=== PATIENT | male | born 1950 | race Caucasian/White ===

== ENCOUNTER → 2018-01-01 | Day surgery (SDC) | payer MEDICARE ==
[2017-12-30 11:01] LABS: BASOPHILS # (AUTO) 0.1 (0.0-0.1); BASOPHILS % 0.9 % (0.0-1.0); EOSINOPHILS # (AUTO) 0.2 (0.0-0.4); EOSINOPHILS % 2.8 % (0.0-6.0); HEMOGLOBIN 15.8 g/dL (14.0-18.0); LYMPHOCYTES # (AUTO) 1.9 (1.0-3.2); LYMPHOCYTES % 24.9 % (18.0-39.1); MEAN CORPUSCULAR HEMOGLOBIN 29.7 pg (28-32); MEAN CORPUSCULAR HGB CONC 33.6 g/dL (31-35); MEAN CORPUSCULAR VOLUME 88.3 fL (81-99); MONOCYTES # (AUTO) 0.7 (0.2-0.8); NEUTROPHILS # (AUTO) 4.8 (2.1-6.9); NEUTROPHILS % 62.3 % (38.7-80.0); PLATELET COUNT 291 x10e3/uL (140-360); RED BLOOD COUNT 5.32 x10e6/uL (4.3-5.7); RED CELL DISTRIBUTION WIDTH 12.6 % (11.7-14.4)
--- NOTE | 2017-12-30 11:01 | Diagnostic Imaging Report ---
PROCEDURE: X-RAY CHEST, TWO VIEWS COMPARISON: None. INDICATIONS: PRE OPERATIVE CHEST X-RAY FOR HERNIA FINDINGS: LUNGS: No consolidations or edema. Questionable right apical nodular opacity superimposed over the anterior first rib. PLEURA: No effusions or pneumothorax. HEART \T\ MEDIASTINUM: The heart is within normal size-limits. BONES \T\ SOFT TISSUES: No acute findings. CONCLUSION: Questionable right apical nodular opacity projecting over the first rib may reflect summation of osseous and vascular structures. In the absence of prior chest radiographs for comparison, a short term followup chest radiograph (3 months) is suggested to assess for stability. Dictated by: Gerson Goldman M.D. on 12/30/2017 at 11:02 Electronically approved by: Gerson Goldman M.D. on 12/30/2017 at 11:02
[2017-12-30 11:20] LABS: ANION GAP 17.3 mmol/L (8-16); BLOOD UREA NITROGEN 14 mg/dL (7-26); BUN/CREATININE RATIO 14 (6-25); CALCIUM 9.8 mg/dL (8.4-10.2); CARBON DIOXIDE 29 mmol/L (22-29); CHLORIDE 99 mmol/L (98-107); CREATININE, SERUM 0.98 mg/dL (0.72-1.25); EST GLOMERULAR FILTRATION RATE > 60 ML/MIN (60-); GLUCOSE 92 mg/dL (74-118); POTASSIUM 4.3 mmol/L (3.5-5.1); SODIUM 141 mmol/L (136-145)
[~2018-01-01] MED LIST: ACETAMINOPHEN 1000 MG/100 ML IV ONE; ATENOLOL50 MG PO; BENICAR20 MG PO; BUPIVACAINE 0.25%/EPI 30ML SDV INJ ONE; CEFAZOLIN SOD 1 GM VIAL ONE; DEXAMETHASONE SOD PHOS INJ 4 MG/ML VIAL ONE; FENTANYL CITRATE/PF 100MCG/2 ML INJ ONE; GLYCOPYRROLATE INJ 1MG/ 5 ML SYR ONE; KETOROLAC TROMETHAMINE 30 MG/ML VIAL ONE; LIDOCAINE HCL 2% LOCAL INJ 5 ML SDV VIAL INJ ONE; MIDAZOLAM HCL 2 MG/2 ML VIAL ONE; NEOSTIGMINE 5 MG/5ML SYR ONE; ONDANSETRON HCL INJ 2 MG/ML VIAL ONE; PROPOFOL IV EMULSION 10 MG/ML 20 ML VIAL ONE; ROCURONIUM BROMIDE 10 MG/ML 5ML VIAL ONE; SEVOFLURANE INHAL SOLN 250 ML PEN BTL ONE
--- OUTSIDE RECORDS SUMMARY | 2018-01-01 06:22 | XMS REPORT ---
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 Allergies, Adverse Reactions, Alerts This patient has no known allergies or adverse reactions. Medications This patient has no known medications. Results Test Description Test Time Test Comments Text Results Atomic Results Result Comments CHEST 2 VIEWS [place] [id number] Patient Name: LILY MOTA MR #: [id number] : 1950 Age/Sex: 67/M Req # : [id number] Adm Physician: Ordered by: AUGUSTO BEAN MD Report #: [id number] Location: OR Room/Bed: Procedure: [id number] DX/CHEST 2 VIEWS Exam Date: Exam Time: REPORT STATUS: Signed PROCEDURE: X-RAY CHEST, TWO VIEWS COMPARISON: None. INDICATIONS: PRE OPERATIVE CHEST X-RAY FOR HERNIA FINDINGS: LUNGS: No consolidations or edema. Questionable right apical nodular opacity superimposed over the anterior first rib. PLEURA: No effusions or pneumothorax. HEART T MEDIASTINUM: The heart is within normal size- limits. BONES T SOFT TISSUES: No acute findings. CONCLUSION : Questionable right apical nodular opacity projecting over the first rib may reflect summation of osseous and vascular structures. In the absence of prior chest radiographs for comparison, a short term followup chest radiograph (3 months) is suggested to assess for stability. Dictated by: Ira Rogers M.D. on 12/30/2017 at 11:02 Electronically approved by: Ira Rogers M.D. on 12/30/2017 at 11:02 Dictated By: IRA ROGERS MD [id number] Transcribed By: GAVIOTA on 12/30/17 110 COPY TO: AUGUSTO BEAN MD
--- NOTE | 2018-01-01 11:30 | Operative Report ---
DATE OF PROCEDURE: January 01, 2018 PREOPERATIVE DIAGNOSIS: Incarcerated umbilical hernia. POSTOPERATIVE DIAGNOSIS: Incarcerated umbilical hernia. PROCEDURE PERFORMED: Repair of incarcerated umbilical hernia. ANESTHESIA: General endotracheal. ESTIMATED BLOOD LOSS: Minimal. DRAINS: None. COMPLICATIONS: None. INDICATIONS AND FINDINGS: This patient is a 67-year-old male who, during physical examination for work, was found to have an incarcerated umbilical hernia. He denied any pain. INTRAOPERATIVE FINDINGS: A less than 1.5-cm incarcerated umbilical herniation with herniation of properitoneal fat. Because of the small size of the repair, primary repair was performed. Incidental note is made of the fact that preoperatively, because he had been a smoker, chest x-ray done preoperatively as per hospital protocol and anesthesia protocol revealed a questionable density in the right upper lobe. He was advised in the holding area prior to surgery that he needs followup chest x-ray in 3 months to ascertain stability of the area in question. His was also informed postoperatively in the waiting room area of the operative results as well as the chest x-ray and the need for followup in 3 months. She was given a copy of his chest x-ray report. DESCRIPTION OF PROCEDURE: With the patient lying on the operative table in the supine position, after administration of general anesthesia, he was prepped and draped for repair of incarcerated umbilical hernia. An incision was made inferior to the umbilicus, and the dissection was carried down through skin and subcutaneous tissue down to the hernia, which consisted of properitoneal fat. The hernia was detached from the surrounding tissues. The excess fat was excised with electrocautery, achieving perfect hemostasis. Then the defect, which was about 1 cm or less, was then closed primarily with a series of interrupted #0 Ethibond suture. The repair was strong. There was no tension. The wound was irrigated and bleeding points cauterized. Sponge and instrument count was correct. The fascia was infiltrated with 0.25% Marcaine with epinephrine, and the wound was closed in layers using 2-0 and 3-0 Vicryl for the soft tissues, and the skin was closed using 3-0 silk. Sterile dressing was applied. The patient tolerated the procedure well and was taken to the recovery room in stable condition. Job#: [id number]
== END | disposition home or self-care (01) ==
LOC: OR 06:20
PROVIDERS: ATTEND Surgery
DX: K42.0 Umbilical hernia with obstruction, without gangrene (principal); I10 Essential (primary) hypertension; Z01.810 Encounter for preprocedural cardiovascular examination; Z01.812 Encounter for preprocedural laboratory examination; Z01.818 Encounter for other preprocedural examination; Z68.31 Body mass index [BMI] 31.0-31.9, adult; Z87.891 Personal history of nicotine dependence
CPT/HCPCS: 36415; 49587; 71046; 80048; 85025; 93005; J0690; J1100; J1885; J2001; J2250; J2405